=== PATIENT | female | born 1965 | race African-American/Black ===

== ENCOUNTER → 2017-07-14 | Outpatient (CLI) | payer BC ==
[~2017-07-14] MED LIST: LUNESTA3 MG PO; NORCO 325 MG-51 TAB PO; TENORMIN 2525 MG/TAB PO; ZESTRIL 5MG5 MG PO
== END ==
LOC: COL.RAD 09:45
DX: R93.2 Abnormal findings on diagnostic imaging of liver and biliary tract (principal); B18.2 Chronic viral hepatitis C; D69.6 Thrombocytopenia, unspecified

== ENCOUNTER → 2018-06-09 | Outpatient (CLI) | payer BC | LOC: MC.RAD 16:03 | DX: Z12.31 Encounter for screening mammogram for malignant neoplasm of breast (principal) ==